=== PATIENT | female | born 1945 | race Caucasian/White ===

== ENCOUNTER → 2017-11-10 | Outpatient (CLI) | payer MEDICARE, OTHER ==
--- NOTE | 2017-11-10 18:17 | DIREP ---
PROCEDURE:XRAY FOOT MIN 3 VWS-RT COMPARISON:None. INDICATIONS:RIGHT FOOT PAIN M79.671 FINDINGS: BONES:Deformity from osteotomy or old fracture at the distal 1st metatarsal. Accessory ossification medial pole of the tarsal navicular. JOINTS:Several lucencies in the distal 1st metatarsal deep to the articular surface of the metatarsal-phalangeal joint. Small erosion at the medial margin of the distal interphalangeal joint at the base of the proximal phalanx of the 1st toe SOFT TISSUES:Normal. OTHER:No additional findings. CONCLUSION:Deformity from old fracture or bunion surgery at the distal 1st metatarsal. Degenerative changes with subchondral cysts at the metatarsal-phalangeal joint. Dictated by: Leonela See MD on 11/10/2017 at 04:55 PM
== END | disposition home or self-care (01) ==
LOC: RAD 15:39
PROVIDERS: ATTEND Internal Medicine
DX: M19.071 Primary osteoarthritis, right ankle and foot (principal); M25.871 Other specified joint disorders, right ankle and foot
CPT/HCPCS: 73630-RT

== ENCOUNTER 2018-01-14 13:14 | Emergency (ER) | payer MEDICARE, OTHER ==
[~2018-01-14] VITALS: Ht 170.2 cm; Wt 54.4 kg
[2018-01-14 13:32] VITALS: BP 136/74
[2018-01-14] MEDS ORDERED: SUBLIMAZE IV STA (13:45)
--- NOTE | 2018-01-14 13:53 | ER.PDOC ---
General Chief Complaint: Extremities Stated Complaint: INJURED WRIST Time seen by MD: 13:50 Source: patient Exam Limitations: no limitations History of Present Illness Initial Comments Left wrist and forearm pain from falling. She denied hitting her head. Occurred: just prior to arrival Severity: moderate Context: Tripped Loss of Consciousness: No Loss of Consciousness Associated Symptoms: denies symptoms Allergies: Coded Allergies: No Known Allergies (Unverified , 01/14/18) Past Medical History Medical History: no pertinent history Surgical History: appendectomy, hip, hysterectomy LMP (females 10-50): hysterectomy Social History Smoking: non-smoker Alcohol Use: heavy Drug Use: none Review of Systems Constitutional: no symptoms reported Respiratory: no symptoms reported Cardiovascular: no symptoms reported Gastrointestinal: no symptoms reported Genitourinary: no symptoms reported Musculoskeletal: see HPI All Other Systems: Reviewed and Negative Physical Exam General Appearance: No Apparent Distress, WD/WN Head: No Evidence of Injury Ears, Nose, Mouth, Throat: Hearing Grossly Normal, No Evidence of ENT Injury, No Dental Injury Neck: Non-Tender, Normal Alignment, Nexus criteria neg, Normal Inspection Cardiovascular/Respiratory: Regular Rate, Rhythm, No M/R/G, Normal Peripheral Pulses, No JVD, Normal Breath Sounds, No Respiratory Distress Gastrointestinal: Normal Bowel Sounds, No Organomegaly, No Pulsatile Mass, Non Tender, Soft Back: Normal Inspection, No CVA Tenderness, No Vertebral Tenderness Extremities: Pain With Movement (left wrist with swelling) 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 Mosley came and reduced wrist EKG/XRAY/CT/US XRAY Comments: Fracture distal left ulnar and radius Departure Time of Disposition: 15:32 Disposition: 01 HOME, SELF-CARE Impression: Primary Impression: Wrist fracture, left Qualified Codes: S62.102A - Fracture of unspecified carpal bone, left wrist, initial encounter for closed fracture Condition: Stable Referrals: LAKEISHA VILLASENOR MD (PCP) PRIMARY CARE PROVIDER Additional Instructions: F/U with Dr. Mosley as instructed Duration or Time Spent with Pa: 60 mins SANTIAGO MARTÍNEZ MD Jan 14, 2018 13:53
[2018-01-14] MEDS ORDERED: SUBLIMAZE ONE (14:17)
--- NOTE | 2018-01-14 14:18 | DIREP ---
PROCEDURE:XRAY FOREARM 2 VWS-RIGHT COMPARISON:[facility], , XRAY WRIST MIN 3VW-LT, 01/14/2018, 01:48 PM. INDICATIONS:Pain from falling FINDINGS: BONES:Acute fracture of the distal right radial metaphysis with dorsal displacement and angulation of the distal fracture segment. No acute fracture of the distal right ulna is seen. No fracture of the shaft or the proximal right radius and the ulna is seen. JOINTS:Normal. SOFT TISSUES:Normal. OTHER:No additional findings. CONCLUSION:Acute transverse fracture of the distal right radial metaphysis with dorsal displacement and angulation of the distal fracture segment. Dictated by: Jann Bloom MD on 01/14/2018 at 02:14 PM ECTION procedure lavern [id number]
[2018-01-14] MEDS ORDERED: LIDOCAINE 1% VIAL ONE (14:27)
--- NOTE | 2018-01-14 14:32 | DIREP ---
PROCEDURE:XRAY WRIST MIN 3VW-RIGHT COMPARISON:None. INDICATIONS:Pain from falling FINDINGS: Three views of the right wrist. There is a comminuted distal radius fracture with apex volar angulation, dorsal tilt of the articular surface, displacement of approximately 1/3 bones width. There is an avulsion fracture of the ulnar styloid. No radiopaque foreign body. CONCLUSION: 1. Comminuted right distal radius fracture. 2. Avulsion fracture of the ulnar styloid. Dictated by: Nancy Guan MD on 01/14/2018 at 02:16 PM ECTION procedure lavern [id number]
--- NOTE | 2018-01-14 15:37 | DIREP ---
PROCEDURE:XRAY WRIST MIN 3VW-RT COMPARISON:[facility], , XRAY WRIST MIN 3VW-RT, 01/14/2018, 01:48 PM. INDICATIONS:POST REDUCTION FINDINGS: BONES:Close reduction and status post splinting of the fracture of the distal right radius. The dorsal angulation is slightly improved. The impaction may also have improved. JOINTS:Normal. SOFT TISSUES:Normal. OTHER:No additional findings. CONCLUSION:Closed reduction of the transverse fracture of the distal right radial metaphysis with improved dorsal angulation. Status post casting/splinting. Dictated by: Jann Bloom MD on 01/14/2018 at 03:35 PM
[2018-01-14 16:06] VITALS: BP 136/74
--- NOTE | 2018-01-18 19:26 | ER.CONS ---
DATE OF SERVICE: 01/14/2018 HISTORY OF PRESENT ILLNESS: The patient is a 72-year-old right hand dominant female, fell today at home injuring the right wrist. She was seen in the Emergency Room by the Emergency Room physician whose exam and x-rays showed a displaced right distal radius fracture. I was consulted for further evaluation and treatment. PHYSICAL EXAMINATION: The patient's exam shows an obvious dinner fork deformity about the right distal radius. She has good radial pulse and normal sensation about the fingers. There is decreased range of motion secondary to pain. She has no open wounds or fracture blisters. IMAGING STUDIES: The patient's x-rays, AP and lateral views of the right wrist show that her wrist has a comminuted displaced right distal radius fracture. ASSESSMENT: Comminuted displaced right distal radius fracture. PLAN: The patient was given a [place] block by myself. The fracture was then reduced with traction and manipulation. The patient was then placed in a well-padded sugar tong splint. The post-reduction x-ray showed satisfactory alignment of the fracture on both planes. The patient will be asked to keep the arm elevated as much as possible. She will work her fingers regularly. I will see her in my office in 1 week. Reese Mosley MD DR: SANDRO/cuco JOB# [id number]
[2018-01-21] MEDS ORDERED: TRAZ50TA18 PO (14:31)
== END 2018-01-14 15:58 | disposition home or self-care (01) ==
LOC: ER 13:14
DX: S52.591A Other fractures of lower end of right radius, initial encounter for closed fracture (principal); S52.611A Displaced fracture of right ulna styloid process, initial encounter for closed fracture; W01.0XXA Fall on same level from slipping, tripping and stumbling without subsequent striking against object, initial encounter; Y93.89 Activity, other specified; Y92.89 Other specified places as the place of occurrence of the external cause; Y99.8 Other external cause status; Z90.710 Acquired absence of both cervix and uterus; Z90.89 Acquired absence of other organs
CPT/HCPCS: 25605; 96374; 99284; J2001; J3010; 73090-RT; 73110-RT

== ENCOUNTER 2018-01-15 11:00 | Emergency (ER) | payer MEDICARE, OTHER ==
[~2018-01-15] VITALS: Ht 162.6 cm; Wt 59.0 kg
[2018-01-15] MEDS ORDERED: TORADOL IM STA (11:33)
[2018-01-15 11:34] VITALS: BP 153/77
--- NOTE | 2018-01-15 11:39 | ER.PDOC ---
General Chief Complaint: Trauma Stated Complaint: R BROKEN ARM,SWELLING, S/PREDUCTION SUGAR TONGUE SPLINT R ARM TRAVEL OUT OF US: No Time seen by MD: 11:44 Source: patient Exam Limitations: no limitations History of Present Illness Timing/Duration: 24 hours Severity: moderate Modifying Factors: improves with immobilization Allergies: Coded Allergies: No Known Allergies (Unverified , 01/14/18) Past Medical History Medical History: no pertinent history Surgical History: hip, other Social History Smoking: non-smoker Drug Use: none Reviewed Nursing Reviewed: Vital Signs, Abn. 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 Skin: Normal Color Lymphatic: No Adenopathy Results/Orders Results/Orders Administered Medications Medications (Trade) Dose Ordered Sig/Alicia Route PRN Reason Start Time Stop Time Status Last Admin Dose Admin Ketorolac Tromethamine (Toradol) 30 mg STAT STAT IM 01/15/18 11:33 01/15/18 11:35 DC 01/15/18 12:01 Fentanyl Citrate (Sublimaze) 50 mcg STAT STAT IM 01/15/18 12:17 01/15/18 12:19 DC 01/15/18 12:20 Consult/PCP Time Consult/PCP Called: 13:00 Consult/PCP: DR CASIANO Course Blood Pressure Systolic: 153 Blood Pressure Diastolic: 77 Blood Pressure Mean: 102 Departure Time of Disposition: 13:11 Disposition: 01 HOME, SELF-CARE Impression: Primary Impression: Colles' fracture Condition: Improved Referrals: LAKEISHA VILLASENOR MD (PCP) PRIMARY CARE PROVIDER Duration or Time Spent with Pa: 1 HR DAYRON TRIPP MD Jan 15, 2018 11:38
[2018-01-15] MEDS ORDERED: TORADOL ONE (11:54)
[2018-01-15] MEDS ORDERED: SUBLIMAZE ONE (12:12)
[2018-01-15] MEDS ORDERED: SUBLIMAZE IM STA (12:17)
[2018-01-15 12:58] VITALS: BP 139/56
--- NOTE | 2018-01-15 12:58 | NUR ---
SVETA WRAP SVETA WRAP REMOVED AND REAPPLIED BY DR TRIPP. PT STATES IS MUCH BETTER AFTER SVETA WRAP ADJUSTMENT.
[2018-01-15 13:12] VITALS: BP 139/56
== END 2018-01-15 13:15 | disposition home or self-care (01) ==
LOC: ER 11:00
DX: S52.531A Colles' fracture of right radius, initial encounter for closed fracture (principal); X58.XXXA Exposure to other specified factors, initial encounter; Y93.89 Activity, other specified; Y92.89 Other specified places as the place of occurrence of the external cause; Y99.8 Other external cause status
CPT/HCPCS: 96372 ×2; 99285; J1885; J3010

== ENCOUNTER 2018-01-22 02:53 | Day surgery (SDC) | payer MEDICARE, OTHER ==
[2018-01-21 14:43] VITALS: BP 123/70
[2018-01-21 15:13] LABS: BASOPHIL % 0.2 % (0.0-0.2); EOSINOPHIL # 0.1 10^3/uL (0.0-0.2); EOSINOPHIL % 1.1 % (0.0-5.0); HEMOGLOBIN 13.6 g/dL (12.0-15.0); LYMPHOCYTES # 2.5 10^3/uL (1.0-4.8); LYMPHOCYTES % 26.2 % (24.0-44.0); MEAN CELL HGB 31.9 pg (26-34); MEAN CELL HGB CONCENTRATION 32.9 g/dL (33-37); MEAN CORP VOLUME 96.9 fL (78-100); MEAN PLATELET VOLUME 10.6 fL (7.8-11.0); MONOCYTES # 0.7 10^3/uL (0.3-0.8); MONOCYTES % 6.8 % (5.0-12.0); NEUTROPHIL # 6.3 10^3/uL (1.8-7.7); NEUTROPHILS % 65.5 % (41.0-85.0); WHITE BLOOD CELL 9.7 10^3/uL (4.5-11.0)
[2018-01-21 15:32] LABS: CALCIUM 9.7 mg/dL (8.4-10.5)
--- NOTE | 2018-01-21 17:03 | PCM.EKG ---
[facility] Test Date: 2018-01-21 Test Time: 15:14:53 Pat Name: TRAY VELASCO Department: Room: Gender: F [place]oulder Operator: AWLVYomi : 1945 Requested By: JORGE A CASIANO Order Number: [id number] Reading MD: Sid Thornton Measurements Intervals [place] Rate: 75 P: 15 IN: 174 QRS: 52 QRSD: 72 T: 39 QT: 426 QTc: 475 Interpretive Statements Normal sinus rhythm Inferior-posterior infarct, age undetermined Abnormal ECG No previous ECG available for comparison Electronically Signed On 02-09-2018 12:34:53 CDT by Sid Thornton Please click the below link to view image of tracing.
[2018-01-22] VITALS (10 sets, daily range): BP systolic 131–153; BP diastolic 66–84
[~2018-01-22] VITALS: Ht 170.2 cm; Wt 54.4 kg
[~2018-01-22 02:53] MED LIST: TRAZ50TA18 PO
[2018-01-22] MEDS ORDERED: NS 100ML 100 ML IV ONE (05:29)
[2018-01-22] MEDS ORDERED: ANCEF ONE (05:29)
[2018-01-22] MEDS ORDERED: LACTATED RINGERS 1,000 ML ONE (05:29)
[2018-01-22] MEDS: LACTATED RINGERS 1,000 ML IV SCH (11:28)
[2018-01-22] MEDS ORDERED: TORADOL ONE (11:52)
[2018-01-22] MEDS ORDERED: DECADRON ONE ×2 (11:52→11:59)
[2018-01-22] MEDS ORDERED: ZOFRAN ONE (11:52)
[2018-01-22] MEDS ORDERED: XYLOCAINE 2%-EPI 1:100,000 ONE (11:55)
[2018-01-22] MEDS ORDERED: SODIUM CHLORIDE IR ONE (11:55)
[2018-01-22] MEDS ORDERED: CLONIDINE 1,000 MCG/10 ML VIAL EP ONE (11:59)
[2018-01-22] MEDS ORDERED: SENSORCAINE-MPF 0.5% VIAL ONE (12:00)
[2018-01-22] MEDS ORDERED: LIDOCAINE 2% VIAL ONE (12:02)
[2018-01-22] MEDS ORDERED: SUBLIMAZE ONE (12:07)
[2018-01-22] MEDS ORDERED: DIPRIVAN IV ONE (12:08)
[2018-01-22] MEDS ORDERED: VERSED ONE (12:08)
[2018-01-22] MEDS ORDERED: DIAZ5TAB PO (14:09)
[2018-01-22] MEDS ORDERED: TRAM-47 PO (14:10)
--- NOTE | 2018-01-22 14:13 | DIREP ---
PROCEDURE:XRAY WRIST MIN 3VW-RT COMPARISON:[facility], , XRAY WRIST MIN 3VW-RT, 01/14/2018, 02:59 PM. INDICATIONS:post orif r wrist FINDINGS: BONES:The patient has had internal fixation for fracture of the distal radial metaphysis with contoured volar T-shaped plate. There is good alignment at the fracture site. Also noted is a fracture at the base of the ulnar styloid. JOINTS:Normal. SOFT TISSUES:Normal. OTHER:No additional findings. CONCLUSION:The patient has had internal fixation of fracture of the distal radius as compared to previous study. Dictated by: Jose Ray M.D. on 01/22/2018 at 02:11 PM
[2018-01-22] MEDS ORDERED: ZOFRAN IV PRN (14:30)
[2018-01-22] MEDS ORDERED: SUBLIMAZE IV PRN (14:30)
[2018-01-22] MEDS ORDERED: LACTATED RINGERS 1,000 ML IV SCH (14:30)
--- NOTE | 2018-01-22 20:01 | OPH ---
DATE OF SURGERY: 01/22/2018 PREOPERATIVE DIAGNOSIS: Displaced right distal radius fracture. POSTOPERATIVE DIAGNOSIS: Displaced right distal radius fracture. OPERATIVE PROCEDURE: Open reduction and internal fixation right distal radius fracture using a 6-hole volar Synthes locking plate. SURGEON: Reese Mosley MD ANESTHESIA: LMA. TOURNIQUET TIME: 60 minutes at 300 mmHg. BLOOD LOSS: 10 mL. DRAINS: None. DESCRIPTION OF INDICATIONS: The patient is a 72-year-old right hand dominant female. She fell approximately a week ago and suffered a displaced right distal radius fracture. The patient was initially seen in the Emergency Room by myself and the fracture was reduced and she was placed in a sugar tong splint. The patient was seen back in the office this week. She preferred open reduction and internal fixation, so that she would not have to be in a cast. The risks and hazards of the procedure as well as recovery protocol were reviewed with the patient and she wanted to proceed with open reduction and internal fixation. DESCRIPTION OF PROCEDURE: The patient was placed on the operating table in the supine position. LMA anesthetic was induced without difficulty. A well-padded tourniquet was placed around the right upper extremity. Right upper extremity was then sterilely prepped and draped. The patient had the arm exsanguinated with an Esmarch and then the tourniquet was inflated to 300 mmHg with a good bounce. The patient had the volar incision made over the flexor carpi radialis tendon. The incision was taken through the skin and the subcutaneous tissues. The tendon sheath of the flexor carpi radialis tendon was opened and the tendon was retracted ulnarly. The patient then had the pronator quadratus released off of the distal radius and it was likewise reflected ulnarly. The fracture site was identified and the fracture was reduced with an elevator. We then placed a 6-hole volar locking plate against the volar aspect of the distal radius. We placed a 2.7 cortical screw through the oblong hole. The AP and lateral views showed satisfactory positioning of the hardware and satisfactory reduction of the fracture. The patient then had 3 locking screws placed distally and 2 more cortical screws placed proximally. Final AP and lateral views showed satisfactory positioning of the fracture and satisfactory reduction of the fracture and satisfactory hardware position. The wounds were then irrigated. The pronator quadratus was closed with a 3-0 Monocryl in an interrupted manner. The skin was closed with a 3-0 Ethilon in a interrupted manner using 3-0 Ethilon. A compressive dressing with a volar splint was applied. The patient was extubated in the operating room, sent to recovery in stable condition. Reese Mosley MD DR: SANDRO/cuco JOB# [id number]
== END 2018-01-22 15:20 | disposition home or self-care (01) ==
LOC: SDC 02:53
PROVIDERS: ATTEND Orthopaedic Surgery
DX: S52.571A Other intraarticular fracture of lower end of right radius, initial encounter for closed fracture (principal); K21.9 Gastro-esophageal reflux disease without esophagitis; Z88.8 Allergy status to other drugs, medicaments and biological substances; Z72.89 Other problems related to lifestyle; Z98.890 Other specified postprocedural states; Z90.710 Acquired absence of both cervix and uterus; Z90.49 Acquired absence of other specified parts of digestive tract; Z82.49 Family history of ischemic heart disease and other diseases of the circulatory system; Z79.899 Other long term (current) drug therapy; Z87.891 Personal history of nicotine dependence; W19.XXXA Unspecified fall, initial encounter; Y93.89 Activity, other specified; Y92.89 Other specified places as the place of occurrence of the external cause; Y99.8 Other external cause status
CPT/HCPCS: 25608; 36415; 64415; 73110; 76000; 80053; 85025; 93005; J0690; J1100 ×2; J1885; J2001; J2250; J2405; J3010; J3490 ×2; J7030; J7050; J7120; C1713

== ENCOUNTER → 2018-02-05 | Outpatient (CLI) | payer MEDICARE, OTHER ==
[~2018-02-05] MED LIST changes: +DIAZ5TAB PO; +TRAM-47 PO
--- NOTE | 2018-02-05 14:02 | DIREP ---
PROCEDURE: BONE DENSITY PERIPHERAL INDICATIONS: RIGHT WRIST FRACTURE COMPARISON: None. FINDINGS: Femur Proximal LEFT femur bone mineral density (BMD) (g/cm2): 0.589 T-score: -3.3 Lumbar Lumbar bone mineral density (BMD) (g/cm2): 0.833 T-score : -2.9 Imaging- No significant findings LEFT FOREARM /3: bone mineral density (g/cm squared): 0.620 T-score: -3.0 UD: bone mineral density (g/cm squared): 0.251 T-score: -4.8 Total: bone mineral density (g/cm squared): 0.440 T-score: -4.0 CONCLUSION: 1. Osteoporosis. SUGGESTED RECOMMENDATIONS: Normal & Osteopenia: Consideration should be given to use of calcium supplementation, daily multiple vitamins and adequate exercise, as preventive measures against osteoporosis, if clinically indicated. Osteoporosis & Severe Osteoporosis: In addition to the above, consideration should be given to medical therapy against osteoporosis, if clinically indicated. Dictated by: Lux Altamirano MD on 02/05/2018 at 12:03 PM [facility]
== END | disposition home or self-care (01) ==
LOC: BD 10:20
PROVIDERS: ATTEND Orthopaedic Surgery
DX: S62.101A Fracture of unspecified carpal bone, right wrist, initial encounter for closed fracture (principal); M81.0 Age-related osteoporosis without current pathological fracture; X58.XXXA Exposure to other specified factors, initial encounter; Y93.89 Activity, other specified; Y92.89 Other specified places as the place of occurrence of the external cause; Y99.8 Other external cause status
CPT/HCPCS: 77080

== ENCOUNTER 2018-08-02 09:53 | Emergency (ER) | payer MEDICARE, OTHER ==
[~2018-08-02] VITALS: Ht 165.1 cm; Wt 59.9 kg
[~2018-08-02 09:53] MED LIST changes: +TRAZ-124 PO; -TRAZ50TA18 PO
--- NOTE | 2018-08-02 09:55 | NUR ---
ARRIVAL PATIENT TO ROOM 5, VIA WC. STATES SHE HAS HAD MUTIPLE SUGERIES TO LEFT FOOT AND ANKLE. PATIENT WAS WALKING ON THURSDAY AND TWISTED HER FOOT AND STUMBLED, PATIENT THEN DROVE TO [place] TO [place]. PATIENT STATED THAT HER LEFT FOOT SWELLS UP EVERY NIGHT TO LARGE PROPORTIONS. PATIENT HAS NO SWELLING OR REDNESS TO THE LEFT FOOT, AMBULATORY IN THE ER. PATIENT CONNECTED TO ALL MONITORS, ASSESSMENT COMPLETED, AWAITING MD SETH.
--- NOTE | 2018-08-02 10:00 | NUR ---
Radha mullins in ED - 08/02/18 at 1037 by [email or web address] UPDATE PATIENT IN ROOM, NO NEEDS/CONCERNS AT THIS TIME. US IN ROOM WITH PATIENT AT THIS TIME.
[2018-08-02 10:08] VITALS: BP 150/90
--- NOTE | 2018-08-02 10:21 | ER.PDOC ---
General Chief Complaint: Extremities Stated Complaint: LEFT FOOT INJURY Time seen by MD: 10:19 Source: patient Exam Limitations: no limitations History of Present Illness Initial Comments Left foot pain S/P twisting it 1 week ago. Where: home Severity: moderate Context: twist Modifying Factors: pain on movement Allergies: Coded Allergies: prochlorperazine (Verified Allergy, Severe, HALLUCINATIONS, 01/21/18) Home Meds Reported Medications Tramadol Hcl (ULTRAM) 50 Mg Tablet, 1-2 TAB PO Q4-6HRS PRN for PAIN, #25 TAB 2 Refills 01/22/18 Diazepam (VALIUM) 5 Mg Tablet, 1 TAB PO Q6 PRN for MUSCLE SPASM, #25 TAB 2 Refills 01/22/18 Trazodone Hcl (TRAZODONE HCL) 50 Mg Tablet, 3 TAB PO HS, #30 TAB 1 Refill 01/21/18 Past Medical History Medical History: other Surgical History: appendectomy, cancer surgery, hip, hysterectomy, other LMP (females 10-50): hysterectomy Social History Smoking: non-smoker Alcohol Use: heavy Drug Use: none Review of Systems Constitutional: no symptoms reported EENTM: no symptoms reported Respiratory: no symptoms reported Cardiovascular: no symptoms reported Gastrointestinal: no symptoms reported Musculoskeletal: see HPI All Other Systems: Reviewed and Negative Physical Exam General Appearance: Alert, No Apparent Distress Foot: tenderness (left) Ankle: nml inspection, non-tender, nml ROM, no joint swelling, skin intact Gait: limited by pain Neuro: sensation nml, motor nml Vascular: no vascular compromise Tendons: tendon function nml Leg/Knee/Thigh: uninjured above ankle Head/ENT: nml inspection, pharynx nml Neck/Back: nml inspection, non-tender Resp/CVS: no resp distress Abdomen: non-tender, no organomegaly Progress Progress X rays left foot: Suspect subtle minimally displaced fracture of the distal 5th metatarsal. Please correlate for focal point tenderness. 2. Postoperative and degenerative changes of the foot as discussed above. Patient will follow up with an Orthopedic Surgeon in her town where she lives. Departure Time of Disposition: 11:12 Disposition: 01 HOME, SELF-CARE Impression: Primary Impression: Foot fracture, left Condition: Stable Referrals: LAKEISHA VILLASENOR MD (PCP) PRIMARY CARE PROVIDER Additional Instructions: Tramadol Ibuprofen F/U with an Orthopedic Surgeon where you live this week. Duration or Time Spent with Pa: 60 mins Problem Qualifiers Primary Impression: Foot fracture, left Encounter type: initial encounter Fracture type: closed Qualified Codes: S92.902A - Unspecified fracture of left foot, initial encounter for closed fracture SANTIAGO MARTÍNEZ MD Aug 02, 2018 10:21
--- NOTE | 2018-08-02 10:50 | DIREP ---
PROCEDURE:XRAY FOOT MIN 3 VWS-LT COMPARISON:None. INDICATIONS:Pain From twiting it FINDINGS: BONES:Diffuse osseous demineralization. Postoperative changes involving the distal aspect of the 1st metatarsal may reflect prior hallux valgus repair. Two surgical screws are noted within this region. There are additional surgical screws traversing the medial malleolus, likely reflective of previous trauma. Subtle deformity involving the distal aspect of the 5th metatarsal is suspicious for minimally displaced fracture. JOINTS:Mild degenerative changes at the 1st metatarsophalangeal joint. Minimal scattered degenerative changes of the remaining interphalangeal joints. SOFT TISSUES:No suspicious abnormality. OTHER:Mild plantar and posterior calcaneal spurring. CONCLUSION: 1. Suspect subtle minimally displaced fracture of the distal 5th metatarsal. Please correlate for focal point tenderness. 2. Postoperative and degenerative changes of the foot as discussed above. Dictated by: Kenyon Newman M.D. On 08/02/2018 at 10:41 AM
--- NOTE | 2018-08-02 10:59 | NUR ---
DR. CASIANO PATIENT APPOINTMENT SET UP FOR Thursday. PATIENT REFUSING BOOT.
[2018-08-02 11:50] VITALS: BP 146/87
[2018-08-02 11:51] VITALS: BP 150/90
== END 2018-08-02 11:45 | disposition home or self-care (01) ==
LOC: ER 09:53
DX: S92.902A Unspecified fracture of left foot, initial encounter for closed fracture (principal); Z79.891 Long term (current) use of opiate analgesic; Z79.899 Other long term (current) drug therapy; Z88.8 Allergy status to other drugs, medicaments and biological substances; Z90.49 Acquired absence of other specified parts of digestive tract; Z98.890 Other specified postprocedural states; Z90.710 Acquired absence of both cervix and uterus; X50.1XXA Overexertion from prolonged static or awkward postures, initial encounter; Y93.89 Activity, other specified; Y92.098 Other place in other non-institutional residence as the place of occurrence of the external cause; Y99.8 Other external cause status
CPT/HCPCS: 99284; 73630-LT